=== PATIENT | male | born 1940 | race Caucasian/White ===

== ENCOUNTER 2025-01-11 21:51 | Inpatient (IN) | payer MEDICARE ==
[~2025-01-11] VITALS: Ht 185.4 cm; Wt 119.7 kg
[2025-01-11 22:00] VITALS: O2SAT 98
[2025-01-11] MEDS: SODIUM CHLORIDE 0.9% 1,000 ML IV ONE (22:32)
[2025-01-12 00:08] LABS: BASOPHILS % 0.3 % (0.0-2.0); EOSINOPHILS % 0.7 % (0.0-5.0); HEMATOCRIT. 41.9 % (42.0-52.0); HEMOGLOBIN. 13.9 g/dL (14.0-18.0); LYMPHOCYTES % 11.1 % (20.0-50.0); MEAN PLATELET VOLUME 7.9 fl (7.4-10.4); MONOCYTES % 6.2 % (2.0-8.0); NEUTROPHILS % 81.7 % (40.0-76.0); PLATELET 194 x1000/uL (130-400); RED BLOOD CELL COUNT 4.82 mill/uL (4.7-6.1); RED CELL DISTRIBUTION WIDTH 14.4 % (11.6-14.6)
[2025-01-12 00:29] LABS: CREATININE 1.4 mg/dL (0.6-1.3); UREA NITROGEN BLOOD 12 mg/dL (9-23)
[2025-01-12 00:32] LABS: TROPONIN I HIGH SENSITIVITY 11 ng/L (3.0-53)
[2025-01-12] MEDS ORDERED: IPRATROPIUM/ALBUTEROL 0.5-3(2.5)MG/3ML NEB HHN PRN (02:00)
[2025-01-12] MEDS ORDERED: DOCUSATE SODIUM 100MG CAPSULE PO PRN (02:00)
[2025-01-12] MEDS ORDERED: ACETAMINOPHEN 325MG TABLET PO PRN ×2 (02:00)
[2025-01-12] MEDS ORDERED: MAGNESIUM/ALUMINUM HYDROXIDE/SIMETHICONE 30ML UDC PO PRN (02:00)
[2025-01-12] MEDS ORDERED: ONDANSETRON HCL 4MG/2ML INJ IV PRN (02:00)
[2025-01-12] MEDS ORDERED: GUAIFENESIN 200MG/10ML SUGAR FREE UDC PO PRN (02:00)
[2025-01-12 02:21] LABS: TROPONIN I HIGH SENSITIVITY 17 ng/L (3.0-53)
[2025-01-12 02:55] VITALS: BP 140/80; PULSE 78; RESP 18; TEMP 36.7516
[2025-01-12] MEDS: LACTATED RINGERS 1,000 ML IV SCH (03:30)
[2025-01-12 04:00] VITALS: BP 112/53; PULSE 62; RESP 20; TEMP 36.9; O2SAT 98
[2025-01-12] MEDS ORDERED: ROSU40TA (04:05)
[2025-01-12] MEDS ORDERED: IRBE1TAB43 PO (04:05)
[2025-01-12 05:49] LABS: CLARITY URINE CLEAR (CLEAR); COLOR URINE YELLOW (YELLOW); GLUCOSE URINE NEGATIVE (NEGATIVE); KETONES URINE 1+ (NEGATIVE); LEUKOCYTE ESTERASE URINE NEGATIVE (NEGATIVE); NITRITE URINE NEGATIVE (NEGATIVE); OCCULT BLOOD URINE NEGATIVE (NEGATIVE); PH URINE 5.5 (4.5-8.0); PROTEIN URINE 1+ (NEGATIVE); SPECIFIC GRAVITY URINE 1.016 (1.005-1.030); UROBILINOGEN URINE 0.2 E.U./dL (0.2-1.0)
[2025-01-12 07:17] LABS: SQUAMOUS EPITHELIAL CELL URINE RARE /lpf (RARE/1+); WBC URINE 0-2 /hpf (0-2)
[2025-01-12 07:18] LABS: BACTERIA URINE TRACE; FINE GRANULAR CASTS URINE 20-30 /lpf; RBC URINE NONE SEEN /hpf (0-2)
[2025-01-12 08:00] VITALS: BP 128/59; PULSE 65; RESP 18; TEMP 36.3; O2SAT 98
[2025-01-12 08:26] LABS: HEPATITIS A AB IGM NEGATIVE (Negative)
[2025-01-12 08:27] LABS: HEPATITIS B CORE AB IGM NEGATIVE (Negative); HEPATITIS C AB NON REACTIVE (Neg) (Negative)
[2025-01-12] MEDS: ENOXAPARIN 30MG/0.3ML SYR SUBCUT SCH (09:00)
[2025-01-12 10:17] LABS: INFLUENZA TYPE A Presumptive Negative (Pres. Neg.); INFLUENZA TYPE B Presumptive Negative (Pres. Neg.)
[2025-01-12 12:00] VITALS: BP 118/62; PULSE 60; RESP 17; TEMP 36.4; O2SAT 97
[2025-01-12 16:00] VITALS: BP 115/56; PULSE 68; RESP 15; TEMP 36.7; O2SAT 96
[2025-01-12 20:00] VITALS: BP 128/69; PULSE 51; RESP 18; TEMP 36.7; O2SAT 97
[2025-01-12] MEDS: FAMOTIDINE 20MG TABLET PO SCH (21:00)
[2025-01-13] VITALS (7 sets, daily range): BP systolic 111–142; BP diastolic 58–107; PULSE 52–91; RESP 18–20; TEMP 36.3–37.1; O2SAT 96–100
[2025-01-14] VITALS: BP 130/62; PULSE 59; RESP 19; TEMP 36.7; O2SAT 96
[2025-01-14 04:00] VITALS: BP_SYST 129; BP_SYST 130; BP_SYST 132; BP_DIAS 64; BP_DIAS 67; BP_DIAS 74; PULSE 49; RESP 18; TEMP 36.4; O2SAT 97
[2025-01-14 08:00] VITALS: BP 159/91; PULSE 95; RESP 18; TEMP 36.4; O2SAT 98
[2025-01-14 12:00] VITALS: BP 133/65; PULSE 79; RESP 16; TEMP 36.7; O2SAT 98
[2025-01-14 13:29] VITALS: BP 122/78; PULSE 65; RESP 18; TEMP 98
== END 2025-01-14 17:57 | disposition home health service (06) | DRG 641 ==
LOC: ER 21:51 → 7WST 01-12 00:31 → EDBEDREQDT 01-12 00:35 → EDBEDREQ 01-12 00:35 → EDBEDREQTM 01-12 00:35 → ENRESERV 01-12 01:16
PROVIDERS: ADMIT Hospitalist; ATTEND Hospitalist
DX: E86.0 Dehydration (principal); N17.9 Acute kidney failure, unspecified; I95.1 Orthostatic hypotension; E87.20 Acidosis, unspecified; E78.00 Pure hypercholesterolemia, unspecified; I10 Essential (primary) hypertension; N40.0 Benign prostatic hyperplasia without lower urinary tract symptoms; Z96.659 Presence of unspecified artificial knee joint; Z79.899 Other long term (current) drug therapy
CPT/HCPCS: 36415; 71045; 80048; 80320; 81003; 82010; 82550; 83605; 83735; 84484; 85025; 86705; 86709; 87340; 87804; 93005; 93970; 96360; 97162; 97166; 99285; J1650; J7030; G0480